=== PATIENT | female | born 1950 | race Caucasian/White ===

== ENCOUNTER 2017-01-25 16:57 | Inpatient (IN) | payer OTHER, MEDICARE ==
[~2017-01-25] VITALS: Ht 154.9 cm; Wt 115.7 kg
[2017-01-28] MEDS ORDERED: CELE100C PO (14:37)
[2017-01-28] MEDS ORDERED: MULTTAB25 PO (14:58)
[2017-01-28] MEDS ORDERED: ESCI20TA PO (14:58)
[2017-01-28] MEDS ORDERED: VITA2000 PO (14:58)
[2017-01-28] MEDS ORDERED: GLUC1CAP14 PO (14:58)
[2017-01-28] MEDS ORDERED: LEVO.075 PO (14:58)
[2017-01-28] MEDS ORDERED: VITA500T49 PO (14:58)
[2017-01-28] MEDS ORDERED: BUPR150T3 PO (14:58)
[2017-01-31] MEDS ORDERED: DEXAMETHASONE SOD PHOS 20 MG/5 ML VIAL IV PRN (06:15)
[2017-01-31] MEDS ORDERED: TRANEXAMIC ACID INJ 1,600 MG in SODIUM CHLORIDE 0.9% INJ 100 ML IV SCH (06:15)
[2017-01-31] MEDS ORDERED: ROPIVACAINE PERI-ARTICULAR INJECTION. PERIART SCH ×5 (06:15)
[2017-01-31] MEDS ORDERED: TRANEXAMIC PERI-ARTICULAR 3,000 MG/NS 100 ML P-ARTICULR SCH ×2 (06:15)
[2017-01-31] MEDS ORDERED: [UNRECOGNIZED DRUG - OTHER] P-ARTICULR SCH ×2 (06:15)
[2017-01-31] MEDS ORDERED: VANCOMYCIN 1000 MG/NS 250 ML (for <70 kg) IV SCH ×2 (06:15)
[2017-01-31] MEDS ORDERED: ceFAZolin 2 GM PREMIX 50 ML IV SCH (06:15)
[2017-01-31 06:20] VITALS: BP 146/81; PULSE 65; RESP 16; TEMP 98.2; O2SAT 94
[2017-01-31] MEDS ORDERED: METOPROLOL TARTRATE 25 MG TAB PO PRN (06:30)
[2017-01-31] MEDS: LACTATED RINGER'S 1000 ML IV SCH (06:30)
[2017-01-31] MEDS ORDERED: INSULIN HUMAN REGULAR 1,000 UNITS/10 ML VIAL SQ PRN (06:30)
[2017-01-31] MEDS ORDERED: SODIUM CHLORID 0.9% 500 ML IV SCH (06:30)
[2017-01-31] MEDS ORDERED: ACETAMINOPHEN 1000 MG/100 ML VIAL IV ONE (07:06)
[2017-01-31] MEDS ORDERED: SUGAMMADEX SODIUM 200 MG/2 ML VIAL IV PUSH ONE ×2 (07:06)
[2017-01-31] MEDS ORDERED: MORPHINE SULFATE 4 MG/ML INJ IV PUSH PRN (07:15)
[2017-01-31] MEDS ORDERED: NALOXONE HCL 0.4 MG/ML AMP IV PRN (07:15)
[2017-01-31] MEDS ORDERED: ONDANSETRON HCL 4 MG/2 ML VIAL IVP PRN (07:15)
[2017-01-31] MEDS ORDERED: ZOLPIDEM TARTRATE 5 MG TAB PO PRN (07:15)
[2017-01-31] MEDS ORDERED: diphenhydrAMINE HCL 50 MG/ML VIAL IV PRN (07:15)
[2017-01-31] MEDS ORDERED: MAGNESIUM HYDROXIDE SUSP 30 ML CUP PO PRN (07:15)
[2017-01-31] MEDS ORDERED: ALUMINUM/MAGNESIUM/SIMETH 30 ML CUP PO PRN (07:15)
[2017-01-31] MEDS ORDERED: ACETAMINOPHEN/HYDROcodone 325 MG/7.5 MG TAB PO PRN (07:15)
[2017-01-31] MEDS ORDERED: Post-op Orders (for Pharmacy) MISC XX ONE (07:15)
[2017-01-31] MEDS ORDERED: SODIUM CHLORIDE 0.9% FLUSH 5 ML FLUSH IVF PRN (07:15)
[2017-01-31] MEDS ORDERED: BISACODYL 10 MG SUPP PR PRN (07:15)
[2017-01-31] MEDS ORDERED: ENOX40P SQ (07:16)
[2017-01-31] MEDS ORDERED: GENTAMICIN SULFATE 80 MG/2 ML VIAL ONE (07:16)
[2017-01-31] MEDS ORDERED: ASPI81CH37 CHEW (07:16)
[2017-01-31] MEDS ORDERED: HYDR-3288 PO (07:17)
[2017-01-31] MEDS ORDERED: MIDAZOLAM HCL 5 MG/5 ML VIAL ONE (07:44)
[2017-01-31] MEDS ORDERED: FAMOTIDINE 20 MG/2 ML VIAL ONE (07:44)
--- NOTE | 2017-01-31 08:28 | PD.CONS ---
[facility] By Dr. Pradhan Reason for Consult Medical management patient to have right total knee arthroplasty today 01/31/2017 Primary Care Physician Danielle Lacey MD Diagnoses: History of Present Illness This is a pleasant 67-year-old female patient with past medical history which includes morbid obesity status post gastric bypass 2004, hypothyroidism, arthritis mostly bilateral knees and depression. Patient is scheduled to have right total knee arthroplasty today 01/31/[address] Pradhan. We've been consulted for since with medical management. Patient reports she has been feeling generally well denies shortness of breath chest pain nausea vomiting diarrhea constipation which congestion fevers or chills. Patient does report she has lost proximally 20 pounds over the last few months but she has been increasing her bike riding distance and watching her diet. Patient has had right knee pain not relieved by medical management physical therapy. Review of Systems Except as stated in HPI: all other systems reviewed are Neg Past Family Social History Allergies: Coded Allergies: No Known Allergies (Unverified , 01/31/17) Past Medical History morbid obesity status post gastric bypass 2004, hypothyroidism, arthritis mostly bilateral knees and depression. Past Surgical History Bilateral meniscus repair, carpal tunnel repair bilaterally, gastric bypass 2004 , fatty tumor removed from neck several years ago Reported Medications [place] (Hydrocodone-Acetaminophen) 7.5-325 mg Tab 1-2 Tab PO Q6H PRN Aspirin Low Dose (Aspirin) 81 Mg Chew 81 Mg CHEW BID Lovenox Inj (Enoxaparin Sodium) 40 Mg/0.4 Ml Syr 40 Mg SQ DAILY Synthroid (Levothyroxine Sodium) 75 Mcg Tab 75 Mcg PO DAILY Vitamin B12 (Cyanocobalamin) 500 Mcg Tab 3,000 Mcg PO DAILY Multi For Her 50+ (Multiple Vitamins W/ Minerals) 1 Tab Tab 2 Chew PO DAILY Vitamin D3 (Cholecalciferol) 2,000 Unit Cap 2,000 Units PO DAILY Glucosamine-Chondroitin 500-400 Mg Cap 2 Chew PO DAILY Escitalopram (Escitalopram Oxalate) 20 Mg Tab 20 Mg PO DAILY Bupropion HCl ER 24 HR (Bupropion HCl) 150 Mg Tab 150 Mg PO DAILY Celebrex (Celecoxib) 100 Mg Cap 100 Mg PO BID Active Ordered Medications Current Medications Medications (Trade) Dose Ordered Sig/Ubaldo Route Start Time Stop Time Status Last Admin (Betadine 7.5% Scrub) 1 applic ONCE TOP 01/31/17 06:15 3/9/17 06:14 Chlorhexidine Gluconate 1 applic 1 applic ONCE TOP 01/31/17 06:15 02/03/17 06:14 Tranexamic Acid 1600 mg/Sodium Chloride 116 ml @ 200 mls/hr ONCE IV 01/31/17 06:15 01/31/17 17:00 Bupivacaine Liposome 20 ml/ Sodium Chloride 60 ml @ 120 mls/hr ONCE P-ARTICULR 01/31/17 06:15 01/31/17 17:00 Ropivacaine 24.63 ml/Ketorolac Tromethamine 30 mg/Epinephrine HCl 0.5 mg/ Clonidine 80 mcg/ Sodium Chloride 100 ml @ 200 mls/hr ONCE PERIART 01/31/17 06:15 01/31/17 17:00 Tranexamic Acid 3000 mg/Sodium Chloride 130 ml @ 260 mls/hr ONCE P-ARTICULR 01/31/17 06:15 01/31/17 17:00 Lactated Ringer's 1,000 ml @ 30 mls/hr Q24H IV 01/31/17 06:30 01/31/17 06:30 (NS 500 ml Inj) 500 ml @ 30 mls/hr [id number] IV 01/31/17 06:30 02/01/17 06:29 (Wellbutrin Xl 24 Hr) 150 mg DAILY PO 01/31/17 09:00 UNV (Lexapro) 20 mg DAILY PO 01/31/17 09:00 UNV Levothyroxine Sodium 75 mcg 75 mcg DAILY PO 01/31/17 09:00 UNV (NS 1000 ml Inj) 1,000 ml @ 100 mls/hr Q10H IV 01/31/17 07:14 UNV (NS Flush) 2 ml UNSCH PRN IVF 01/31/17 07:15 UNV (NS Flush) 2 ml BID IVF 01/31/17 09:00 UNV (Post-op Orders (for Pharmacy)) STAT ONCE XX 01/31/17 07:15 01/31/17 07:16 UNV (Lovenox Inj) 40 mg Q24H SQ 01/31/17 07:15 UNV (Morphine Inj) 3 mg Q3H PRN IV PUSH 01/31/17 07:15 UNV ([place] 7.5-325 Mg) 1 tab Q4H PRN PO 01/31/17 07:15 UNV ([place] 7.5-325 Mg) 2 tab Q4H PRN PO 01/31/17 07:15 UNV (Theragran M Tab) 1 tab BID PO 02/01/17 21:00 04/02/17 20:59 UNV (Zofran Inj) 4 mg Q6H PRN IVP 01/31/17 07:15 UNV (Colace) 100 mg BID PO 02/01/17 21:00 UNV (Mag-Al Plus Susp Liq) 30 ml Q6H PRN PO 01/31/17 07:15 UNV (Ambien) 5 mg HS PRN PO 01/31/17 07:15 UNV (Dulcolax Supp) 10 mg DAILY PRN NM 01/31/17 07:15 UNV (Milk Of Magnesia Liq) 30 ml DAILY PRN PO 01/31/17 07:15 UNV (Narcan Inj) 0.4 mg UNSCH PRN IV 01/31/17 07:15 UNV (Benadryl Inj) 25 mg Q6H PRN IV 01/31/17 07:15 UNV Family History Patient reports bipolar runs in her family Brother secondary to brain aneurysm Social History Patient reports she drinks 1-2 beers a week Denies tobacco use now or in the past Denies illicit drug use Physical Exam Vital Signs Vital Signs Date Time Temp Pulse Resp B/P Pulse Ox O2 Delivery O2 Flow Rate FiO2 01/31/17 06:20 98.2 65 16 146/81 94 Physical Exam GENERAL: This is an obese, well-developed patient, in no apparent distress. SKIN: No rashes, ecchymoses or lesions. Cool and dry. Bilateral forearm tattoo' s HEAD: Atraumatic. Normocephalic. No temporal or scalp tenderness. EYES: Extraocular motions intact. No scleral icterus. No injection or drainage. CARDIOVASCULAR: Regular rate and rhythm without murmurs, gallops, or rubs. RESPIRATORY: Clear to auscultation. Breath sounds equal bilaterally. No wheezes , rales, or rhonchi. GASTROINTESTINAL: Abdomen soft, non-tender, nondistended. No hepato-splenomegaly , or palpable masses. No guarding. MUSCULOSKELETAL: 5 out of 5 strength in all 4 extremities No calf tenderness. Negative Homans sign bilaterally. NEUROLOGICAL: Awake and alert. No focal deficits. Motor and sensory grossly within normal limits. Five out of 5 muscle strength in all muscle groups. Normal speech. Laboratory Laboratory Tests Test 01/31/17 06:25 Blood Type O POSITIVE Antibody Screen NEGATIVE Blood Bank Comment Assessment and Plan Assessment and Plan This is a pleasant 67-year-old female patient with past medical history which includes morbid obesity status post gastric bypass 2004, hypothyroidism, arthritis mostly bilateral knees and depression. Patient is scheduled to have right total knee arthroplasty today 01/31/[address] Pradhan. We've been consulted for since with medical management. Osteoarthritis right knee Plan right total knee arthroplasty today 01/31/[address] Pradhan Postoperative pain management per surgery. CBC and BMP in a.m. Hypothyroidism continue patient's Synthroid 75mcg per day Depression continue patient's home Bupropion and Escitalopram DVT prophylaxis per surgery Thank you for the consultation and for allowing us to participate in the care of this patient Care discussed with patient as well as Dr. Nguyen Agree with management Code Status Full Code. Jada Muñoz Jan 31, 2017 08:28 Sp Bennett MD Feb 01, 2017 13:26
[2017-01-31] MEDS ORDERED: buPROPion HCL 150 MG EXTENDED RELEASE TAB PO SCH (09:00)
[2017-01-31] MEDS: LEVOTHYROXINE SODIUM 75 MCG TAB PO SCH (09:00)
[2017-01-31] MEDS ORDERED: BUPIVACAINE LIPOSOME PF 1.3% 20 ML VIAL ONE (10:36)
[2017-01-31] MEDS ORDERED: fentaNYL CITRATE 250 MCG/5 ML AMP ONE (10:57)
[2017-01-31] MEDS ORDERED: *morphine SULFATE 8 MG/ML PERIprocedure ONLY ONE ×2 (11:02→11:16)
[2017-01-31] MEDS: SODIUM CHLOR 0.9% 1000 ML INJ 1,000 ML IV SCH ×2 (11:15→20:00)
[2017-01-31] MEDS ORDERED: ONDANSETRON HCL 4 MG/2 ML VIAL IV PUSH ONE (12:00)
[2017-01-31] MEDS ORDERED: LACTATED RINGER'S 1000 ML INJ 1,000 ML IV ONE (12:00)
[2017-01-31] MEDS ORDERED: PROPOFOL 200 MG/20 ML AMP IV ONE ×2 (12:00)
--- NOTE | 2017-01-31 12:00 | RADRPT ---
EXAM DATE/TIME: 01/31/2017 11:15 [facility] COMPARISON: No previous studies available for comparison. INDICATIONS : Post right knee surgery. MEDICAL HISTORY : None. SURGICAL HISTORY : None. ENCOUNTER: Initial ACUITY: 1 day PAIN SCORE: Non-responsive. LOCATION: Right knee. FINDINGS: AP and lateral views of the right knee demonstrate changes consistent with recent total knee arthropl asty with metallic hardware in place in the distal femur and proximal tibia. There is a radiolucent p atellar component. There is soft tissue gas present, as expected CONCLUSION: Expected findings are identified following recent total knee arthroplasty. Eliseo Sheldon MD on January 31, 2017 at 11:57 Board Certified Radiologist. This report was verified electronically.
--- NOTE | 2017-01-31 12:19 | MP ---
cc: MICHELA CLARK DATE OF SURGERY: 01/31/2017 PREOPERATIVE DIAGNOSIS Right knee osteoarthritis. POSTOPERATIVE DIAGNOSES Right knee osteoarthritis. PROCEDURE Right total knee arthroplasty. SURGEON Dr. Michela Clark HARNESS PLACER Michela Brantley PA-C ANESTHESIA General. ESTIMATED BLOOD LOSS 100 cc. COMPLICATIONS None. IMPLANTS USED DePuy Attune size 6 posterior stabilized femoral component, size 5 rotating platform tibia baseplate, size 5 tibial insert, size 35 mm patella. JUSTIFICATION This patient is a 67-year-old female with a history of a severe end-stage osteoarthritis involving the right knee. She has severe disabling pain with standing and walking ambulation, weightbearing activities, even severe pain at rest. She has failed greater than 3 months of nonoperative conservative treatment to include medication, therapy, injections, ambulatory assisted aids, home exercise program, weight loss attempts and activity modification. X-rays of the right knee reveal severe end-stage osteoarthritis with [id number] joint space narrowing, subchondral sclerosis, subchondral cysts, osteophyte formation and varus deformity. The patient was counseled as to the risks, benefits and alternatives to a total knee arthroplasty. The risks of such include but are not limited to anesthesia, bleeding, infection, damage to nerves and blood vessels, pain and stiffness, failure of the components, blood clots, pulmonary embolism, and even . The patient's pain is severe. She favored the benefits over the risks and did wish to proceed with surgery. PROCEDURE IN DETAIL Written consent was obtained. The patient was identified by name, taken to the operating room and placed supine on the operating table. General anesthesia was administered as well as two grams of IV Ancef and one gram of IV vancomycin. A well-padded tourniquet was placed on the right thigh. The right lower extremity was prepped and draped using isopropyl alcohol, Hibiclens solution and ChloraPrep solution. After an appropriate timeout was performed an Esmarch bandage was used to exsanguinate the right lower extremity. The tourniquet was inflated to 300 mmHg. A longitudinal incision was made over the anterior aspect of the right knee. A medial parapatellar arthrotomy was performed. The patella was everted. A patellar resection guide was used to resect 8 mm of patella. A size 35 mm guide was placed. Three drill holes were placed and the 35 mm trial fit well. Attention was turned to the femur where an intramedullary guide kristie was placed. This was set to remove 10 mm of distal femur 5 degrees off the anatomic valgus axis alignment. An oscillating saw was used to perform the distal femoral cut. At this point I deflated the tourniquet because she appeared to be bleeding through and the tourniquet did not appear to be of any significant benefit. Attention was turned to the tibia where an extramedullary tibial guide was set to remove 5 mm off the lowest portion of the medial tibial plateau. A tibia guide was pinned in place and a tibia cut was performed. A 5 mm spacer block showed full extension. Attention was turned back to the femur where the AP sizing block measured size 6. The anterior reference 3 degree external rotation guide was used to pin a size [address] The anterior, grants officer and chamfer cuts were performed. A size 6 PCL box guide was pinned in place. The PCL was box cut with an oscillating saw. The medial and lateral meniscus remnants were removed as well as bone and soft tissue removed from the posterior portion of the knee. A size 5 tibia baseplate was pinned in place. The tibia was drilled and punched. Trial components were evaluated and the [address]. With the 5 mm tibial insert the leg could achieve full extension to 0 degrees and flexion to 140. There was no evidence of tibial lift-off, varus-valgus balance appeared appropriate, and the patella was noted to track centrally. The knee was thoroughly irrigated sterile saline pulse lavage antibiotic impregnated solution. The arthrotomy incision was closed with #1 Vicryl suture, the subcutaneous layer with 2-0 Vicryl suture and the skin was closed with Dermabond. Sterile dressings were applied. The patient tolerated the procedure well with no intraoperative complication noted. Michela Brantley, physician registered sales assistant certified, was present during the entire procedure to include patient positioning and the procedure itself. The medical necessity of a physician registered sales assistant was indicated in this case due to the complexity of the procedure. He assisted with appropriate manipulation of the leg and also traction of muscle, tendon, bone and neurovascular structures. He assisted with both preparation of bone cuts and also implantation of the prosthetic replacement. MD MAXIMILIANO Slater/GERRY /10:30 AM /12:04 PM
[2017-01-31] MEDS: ceFAZolin 1,000 MG/NS 100 ML IV SCH ×4 (14:00→20:00)
[2017-01-31] MEDS: ESCITALOPRAM OXALATE 20 MG TAB PO SCH (18:55)
[2017-01-31] MEDS: buPROPion HCL 150 MG SUSTAINED RELEASE TAB PO SCH (18:59)
[2017-01-31 20:30] VITALS: BP 113/59; PULSE 65; RESP 17; TEMP 97.9; O2SAT 95
[2017-01-31] MEDS: SODIUM CHLORIDE 0.9% FLUSH 5 ML FLUSH IVF SCH (21:00)
[2017-02-01] VITALS (8 sets, daily range): BP systolic 103–154; BP diastolic 56–67; PULSE 59–83; RESP 16–18; TEMP 97.6–99.8; O2SAT 93–98
[2017-02-01] MEDS: ceFAZolin 1,000 MG/NS 100 ML IV SCH ×2 (01:50)
[2017-02-01] MEDS: SODIUM CHLOR 0.9% 1000 ML INJ 1,000 ML IV SCH ×3 (01:51→20:31)
[2017-02-01] MEDS: LACTATED RINGER'S 1000 ML IV SCH (04:09)
[2017-02-01] MEDS: ACETAMINOPHEN/HYDROcodone 325 MG/7.5 MG TAB PO PRN ×4 (05:02→20:30)
[2017-02-01] MEDS: LEVOTHYROXINE SODIUM 75 MCG TAB PO SCH (05:02)
[2017-02-01] MEDS: CHLORHEXIDINE GLUCONATE 4% SOLN 120 ML BTL TOP SCH (06:03)
[2017-02-01] MEDS: POVIDONE IODINE 7.5% SCRUB 118 ML BOTTLE TOP SCH (06:03)
--- NOTE | 2017-02-01 08:27 | PD.ORT.PN ---
Subjective Post Op Day #: 1 Subjective Remarks pain controlled. Objective Vitals Vital Signs Date Time Temp Pulse Resp B/P Pulse Ox O2 Delivery O2 Flow Rate FiO2 02/01/17 04:00 Room Air 02/01/17 04:00 98.3 70 17 134/65 96 02/01/17 00:00 97.6 80 18 121/56 95 02/01/17 00:00 Room Air 01/31/17 20:30 97.9 65 17 113/59 95 01/31/17 20:00 Room Air 01/31/17 20:00 97.6 65 16 120/62 95 Room Air 01/31/17 19:00 66 16 126/63 95 Room Air 01/31/17 18:00 68 16 135/67 94 Room Air 01/31/17 17:00 66 16 136/65 94 Room Air 01/31/17 16:00 67 16 137/68 93 Room Air 01/31/17 15:00 69 16 139/70 99 Nasal Cannula 2 01/31/17 14:05 97.8 68 17 146/72 97 Nasal Cannula 2 01/31/17 14:00 75 17 141/68 98 Nasal Cannula 2 01/31/17 13:00 76 17 166/73 98 Nasal Cannula 2 01/31/17 12:15 73 17 171/76 98 Nasal Cannula 3 01/31/17 12:00 69 17 166/73 98 Nasal Cannula 3 01/31/17 11:45 86 17 152/58 96 Nasal Cannula 3 01/31/17 11:30 71 15 150/72 97 Nasal Cannula 3 01/31/17 11:15 75 15 167/69 97 Nasal Cannula 3 01/31/17 11:00 81 15 161/74 97 Nasal Cannula 3 01/31/17 10:52 97.8 83 15 187/77 95 Nasal Cannula 3 I/O 01/31/17 01/31/17 01/31/17 02/01/17 02/01/17 02/01/17 07:00 15:00 23:00 07:00 15:00 23:00 Intake Total 1550 ml 2267 ml 1069 ml Output Total 610 ml 650 ml 350 ml Balance 940 ml 1617 ml 719 ml Intake Oral 680 ml 480 ml IV Total 450 ml 1587 ml 589 ml Other 1100 ml Output Urine Total 310 ml 650 ml 350 ml Estimated Blood Loss 300 ml Objective Remarks in bed, nad dressing c/d/i neg homabeckie nvi Assessment & Plan Ortho Post Op Day #: 1 Problem List: Assessment and Plan s/p R TKA wbat daily dressing changes lovenox rx in chart d/c planning home with [facility] and pt f/up dr. chapman 2 weeks Howie Brantley Feb 01, 2017 08:27
--- NOTE | 2017-02-01 08:29 | HHI.DCPOC ---
Discharge Care Plan Diagnosis: (1) Primary localized osteoarthrosis, lower leg Your Health Problems Are: Difficulty with ADL Goals to Promote Your Health * To prevent worsening of your condition and complications * To maintain your health at the optimal level Directions to Meet Your Goals Take your medications as prescribed Follow your dietary instruction Follow activity as directed Keep your appointments as scheduled Take your immunizations and boosters as scheduled If your symptoms worsen call your PCP, if no PCP go to Urgent Care Center or Emergency Room Smoking is Dangerous to Your Health. Avoid second hand smoke Call the 24-hour hour crisis hotline for domestic abuse at Howie Brantley Feb 01, 2017 08:29
[2017-02-01] MEDS ORDERED: MISC-163 (08:30)
--- NOTE | 2017-02-01 08:30 | HHI.FF ---
Face to Face Verification Diagnosis: (1) Primary localized osteoarthrosis, lower leg Physical Therapy Gait training, Safety evaluation, Transfer training, bed to chair Knee: Total knee, Protocol: Right, Full weight bearing Right LE Weight Bearing: WB as tolerated Nursing RN: 3 days/week x 2 weeks Nursing: Aide teaching, Dressing changes Dressing Changes: Daily dressing change I have seen patient Curtis Ireland on 02/01/17. My clinical findings support the need for the requested home health care services because: Limited ability to care for self High risk of falls I certify that my clinical findings support that this patient is homebound because: Post-op weakness Unsteady gait/balance Howie Brantley Feb 01, 2017 08:30
[2017-02-01 08:43] LABS: HEMATOCRIT 30.6 % (35.0-46.0); MEAN CELL VOLUME 95.6 FL (80.0-100.0); MEAN CORPUSCULAR HEMOGLOBIN 32.2 PG (27.0-34.0); MEAN CORPUSCULAR HGB CONC 33.7 % (32.0-36.0); PLATELET COUNT 154 TH/MM3 (150-450); RED CELL DISTRIBUTION WIDTH 14.2 % (11.6-17.2); REVIEW FLAG FINAL; WHITE BLOOD COUNT 7.4 TH/MM3 (4.0-11.0)
[2017-02-01] MEDS: buPROPion HCL 150 MG SUSTAINED RELEASE TAB PO SCH (08:52)
[2017-02-01] MEDS: SODIUM CHLORIDE 0.9% FLUSH 5 ML FLUSH IVF SCH ×2 (08:53→20:30)
[2017-02-01] MEDS: ESCITALOPRAM OXALATE 20 MG TAB PO SCH (08:53)
[2017-02-01 09:06] LABS: BICARBONATE 29.9 MEQ/L (21.0-32.0)
[2017-02-01] MEDS: MAGNESIUM HYDROXIDE SUSP 30 ML CUP PO SCH ×2 (09:15→20:30)
[2017-02-01] MEDS: ENOXAPARIN SODIUM 40 MG/0.4 ML SYRINGE SQ SCH (09:19)
--- NOTE | 2017-02-01 13:33 | HHI.PR ---
Subjective Remarks This is a pleasant 67-year-old female who has Morbid Obesity, Gastric bypass surgery 2005 Hypothyroidism, OA, Depression, status post Right total knee arthroplasty. today stable no new issues probable will be discharged later by specialist. discussed with nurse Miss Schulz no complaint. Objective Vital Signs Date Time Temp Pulse Resp B/P Pulse Ox O2 Delivery O2 Flow Rate FiO2 02/01/17 12:00 98.5 83 18 120/67 98 02/01/17 09:00 96 Room Air 02/01/17 08:58 96 21 02/01/17 08:00 99.0 70 18 154/63 93 02/01/17 04:00 Room Air 02/01/17 04:00 98.3 70 17 134/65 96 02/01/17 00:00 97.6 80 18 121/56 95 02/01/17 00:00 Room Air 01/31/17 20:30 97.9 65 17 113/59 95 01/31/17 20:00 Room Air 01/31/17 20:00 97.6 65 16 120/62 95 Room Air 01/31/17 19:00 66 16 126/63 95 Room Air 01/31/17 18:00 68 16 135/67 94 Room Air 01/31/17 17:00 66 16 136/65 94 Room Air 01/31/17 16:00 67 16 137/68 93 Room Air 01/31/17 15:00 69 16 139/70 99 Nasal Cannula 2 01/31/17 14:05 97.8 68 17 146/72 97 Nasal Cannula 2 01/31/17 14:00 75 17 141/68 98 Nasal Cannula 2 I/O 01/31/17 01/31/17 01/31/17 02/01/17 02/01/17 02/01/17 07:00 15:00 23:00 07:00 15:00 23:00 Intake Total 1550 ml 2267 ml 1069 ml Output Total 610 ml 650 ml 350 ml Balance 940 ml 1617 ml 719 ml Intake Oral 680 ml 480 ml IV Total 450 ml 1587 ml 589 ml Other 1100 ml Output Urine Total 310 ml 650 ml 350 ml Estimated Blood Loss 300 ml Result Diagram: 02/01/17 0755 02/01/17 0755 Imaging Last Impressions Knee X-Ray 01/31/17713 Signed Impressions: Service Date/Time: Tuesday, January 31, 2017 11:15 - CONCLUSION: Expected findings are identified following recent total knee arthroplasty. Eliseo Sheldon MD Procedures Right total knee arthroplasty. Other Results Laboratory Tests Test 01/31/17 02/01/17 06:25 07:55 Blood Type O POSITIVE Antibody Screen NEGATIVE Blood Bank Comment White Blood Count 7.4 TH/MM3 Red Blood Count 3.20 MIL/MM3 Hemoglobin 10.3 GM/DL Hematocrit 30.6 % Mean Corpuscular Volume 95.6 FL Mean Corpuscular Hemoglobin 32.2 PG Mean Corpuscular Hemoglobin 33.7 % Concent Red Cell Distribution Width 14.2 % Platelet Count 154 TH/MM3 Mean Platelet Volume 8.6 FL Sodium Level 144 MEQ/L Potassium Level 4.0 MEQ/L Chloride Level 107 MEQ/L Carbon Dioxide Level 29.9 MEQ/L Anion Gap 7 MEQ/L Blood Urea Nitrogen 16 MG/DL Creatinine 0.83 MG/DL Estimat Glomerular Filtration 68 ML/MIN Rate Random Glucose 93 MG/DL Calcium Level 8.0 MG/DL Objective Remarks GENERAL: This is an obese, well-developed patient, in no apparent distress. SKIN: No rashes, ecchymoses or lesions. Cool and dry. Bilateral forearm tattoo' s HEAD: Atraumatic. Normocephalic. No temporal or scalp tenderness. EYES: Extraocular motions intact. No scleral icterus. No injection or drainage. CARDIOVASCULAR: Regular rate and rhythm without murmurs, gallops, or rubs. RESPIRATORY: Clear to auscultation. Breath sounds equal bilaterally. No wheezes , rales, or rhonchi. GASTROINTESTINAL: Abdomen soft, non-tender, nondistended. No hepato-splenomegaly , or palpable masses. No guarding. MUSCULOSKELETAL: Right knee dressed. NEUROLOGICAL: Awake and alert. No focal deficits. Motor and sensory grossly within normal limits. Medications and IVs Current Medications Medications (Trade) Dose Ordered Sig/Ubaldo Route Start Time Stop Time Status Last Admin (Betadine 7.5% Scrub) 1 applic ONCE TOP 01/31/17 06:15 02/03/17 06:14 Chlorhexidine Gluconate 1 applic 1 applic ONCE TOP 01/31/17 06:15 02/03/17 06:14 (Lr 1000 ml Inj) 1,000 ml @ 30 mls/hr Q24H IV 01/31/17 06:30 01/31/17 06:30 (Lexapro) 20 mg DAILY PO 01/31/17 09:00 02/01/17 08:53 Levothyroxine Sodium 75 mcg 75 mcg DAILY@06 PO 01/31/17 09:00 02/01/17 05:02 (NS 1000 ml Inj) 1,000 ml @ 100 mls/hr Q10H IV 01/31/17 07:14 02/01/17 01:51 (NS Flush) 2 ml UNSCH PRN IVF 01/31/17 07:15 (NS Flush) 2 ml BID IVF 01/31/17 09:00 (Lovenox Inj) 40 mg Q24H SQ 02/01/17 10:00 02/01/17 09:19 (Morphine Inj) 3 mg Q3H PRN IV PUSH 01/31/17 07:15 ([place] 7.5-325 Mg) 1 tab Q4H PRN PO 01/31/17 07:15 ([place] 7.5-325 Mg) 2 tab Q4H PRN PO 01/31/17 07:15 02/01/17 10:37 (Theragran M Tab) 1 tab BID PO 02/01/17 21:00 04/02/17 20:59 (Zofran Inj) 4 mg Q6H PRN IVP 01/31/17 07:15 (Colace) 100 mg BID PO 02/01/17 21:00 (Mag-Al Plus Susp Liq) 30 ml Q6H PRN PO 01/31/17 07:15 (Ambien) 5 mg HS PRN PO 01/31/17 07:15 (Dulcolax Supp) 10 mg DAILY PRN [place] 01/31/17 07:15 (Narcan Inj) 0.4 mg UNSCH PRN IV 01/31/17 07:15 (Benadryl Inj) 25 mg Q6H PRN IV 01/31/17 07:15 (Wellbutrin Sr) 150 mg DAILY PO 01/31/17 19:00 02/01/17 08:52 (Milk Of Magnesia Liq) 30 ml BID PO 02/01/17 09:15 (Senokot) 17.2 mg HS PO 02/01/17 21:00 A/P Assessment and Plan 1. OA of the knees status post Right total knee arthroplasty stable may be discharged by specialist later today 2. Hypothyroidism continue hormonal replacement 3. Depression stable 4. Morbid obesity strongly recommended weight loss, diet and exercise. DVT prophylaxis per surgery Patient stable okay for discharge later today. Discharge Planning ready for discharge from Medicine standpoint. Sp Bennett MD Feb 01, 2017 13:33
[2017-02-01] MEDS: DOCUSATE SODIUM 100 MG CAP PO SCH (20:30)
[2017-02-01] MEDS: MULTIVITAMINS/MINERALS THERAPEUTIC TAB PO SCH (20:30)
[2017-02-01] MEDS ORDERED: SENNOSIDES 8.6 MG TAB PO SCH (21:00)
[2017-02-02] VITALS: BP 138/76; PULSE 78; RESP 16; TEMP 98.4; O2SAT 95
[2017-02-02] MEDS: ACETAMINOPHEN/HYDROcodone 325 MG/7.5 MG TAB PO PRN ×4 (01:06→15:28)
--- NOTE | 2017-02-02 01:18 | RADRPT ---
EXAM DATE/TIME: 02/01/2017 23:35 [facility] COMPARISON: No previous studies available for comparison. INDICATIONS : Right leg pain. MEDICAL HISTORY : Arthritis. Thyroid disease. Anticoagulant therapy, Lovenox. SURGICAL HISTORY : Gastric bypass. Bilateral meniscus surgery. Bilateral carpel tunnel release. ENCOUNTER: Initial ACUITY: 1 day PAIN SCORE: 5/10 LOCATION: Right leg. TECHNIQUE: Venous ultrasound of the leg was performed from the inguinal ligament to the proximal calf. Real-owen e, color Doppler and spectral tracing, compression and augmentation techniques were used. FINDINGS: There is normal compressibility of the deep venous system from the inguinal region to the proximal ca lf. No echogenic clot is seen in the lumen of the common femoral, femoral, popliteal, and posterior tibial veins. There is a normal response of the venous system to proximal and distal augmentation an d respiration. CONCLUSION: No DVT. Derrek Erazo MD on February 02, 2017 at 1:16 Board Certified Radiologist. This report was verified electronically.
[2017-02-02] MEDS: LACTATED RINGER'S 1000 ML IV SCH (01:21)
[2017-02-02] MEDS: POVIDONE IODINE 7.5% SCRUB 118 ML BOTTLE TOP SCH (01:21)
[2017-02-02] MEDS: CHLORHEXIDINE GLUCONATE 4% SOLN 120 ML BTL TOP SCH (01:21)
[2017-02-02] MEDS: LEVOTHYROXINE SODIUM 75 MCG TAB PO SCH (05:51)
[2017-02-02 06:49] LABS: HEMATOCRIT 29.3 % (35.0-46.0); MEAN CELL VOLUME 94.6 FL (80.0-100.0); MEAN CORPUSCULAR HEMOGLOBIN 32.4 PG (27.0-34.0); MEAN CORPUSCULAR HGB CONC 34.2 % (32.0-36.0); PLATELET COUNT 144 TH/MM3 (150-450); RED CELL DISTRIBUTION WIDTH 14.5 % (11.6-17.2); REVIEW FLAG FINAL; WHITE BLOOD COUNT 6.1 TH/MM3 (4.0-11.0)
[2017-02-02 07:10] LABS: BICARBONATE 27.6 MEQ/L (21.0-32.0); POTASSIUM 4.1 MEQ/L (3.5-5.1)
--- NOTE | 2017-02-02 08:06 | PD.ORT.PN ---
Subjective Post Op Day #: 2 Subjective Remarks pain controlled. feeling much better. Objective Vitals Vital Signs Date Time Temp Pulse Resp B/P Pulse Ox O2 Delivery O2 Flow Rate FiO2 02/02/17 00:00 98.4 78 16 138/76 95 02/01/17 20:25 96 21 02/01/17 20:00 99.8 81 16 145/65 93 02/01/17 16:00 99.0 75 18 138/56 96 02/01/17 12:00 98.5 83 18 120/67 98 02/01/17 09:00 96 Room Air 02/01/17 08:58 96 21 I/O 02/01/17 02/01/17 02/01/17 02/02/17 02/02/17 02/02/17 07:00 15:00 23:00 07:00 15:00 23:00 Intake Total 1069 ml 720 ml 240 ml Output Total 350 ml Balance 719 ml 720 ml 240 ml Intake Oral 480 ml 720 ml 240 ml IV Total 589 ml Output Urine Total 350 ml # Voids 5 2 # Bowel Movements 0 0 Result Diagram: 02/02/1762702/02/1728 Objective Remarks in bed, nad incision no erythema, no drainage neg homans nvi Assessment & Plan Ortho Post Op Day #: 2 Problem List: Assessment and Plan s/p R TKA wbat daily dressing changes lovenox rx in chart d/c planning home with [facility] and pt - cleared for d/c today f/up dr. chapman 2 weeks Howie Brantley Feb 02, 2017 08:06
[2017-02-02 08:08] VITALS: BP 155/69; PULSE 73; RESP 16; TEMP 98.6; O2SAT 94
[2017-02-02] MEDS: MAGNESIUM HYDROXIDE SUSP 30 ML CUP PO SCH (09:00)
[2017-02-02] MEDS: DOCUSATE SODIUM 100 MG CAP PO SCH (09:00)
[2017-02-02] MEDS: SODIUM CHLOR 0.9% 1000 ML INJ 1,000 ML IV SCH (09:14)
[2017-02-02] MEDS: buPROPion HCL 150 MG SUSTAINED RELEASE TAB PO SCH (09:19)
[2017-02-02] MEDS: ESCITALOPRAM OXALATE 20 MG TAB PO SCH (09:19)
[2017-02-02] MEDS: SODIUM CHLORIDE 0.9% FLUSH 5 ML FLUSH IVF SCH (09:20)
[2017-02-02] MEDS: MULTIVITAMINS/MINERALS THERAPEUTIC TAB PO SCH (09:21)
[2017-02-02] MEDS: ENOXAPARIN SODIUM 40 MG/0.4 ML SYRINGE SQ SCH (09:21)
[2017-02-02 12:22] VITALS: BP 139/68; PULSE 70; RESP 16; TEMP 97.9; O2SAT 95
--- NOTE | 2017-02-02 16:16 | HHI.PR ---
Subjective Remarks This is a pleasant 67-year-old female who has Morbid Obesity, Gastric bypass surgery 2005 Hypothyroidism, OA, Depression, status post Right total knee arthroplasty. today stable no Nausea, vomit or diarrhea, stable okay to discharge Home Objective Vital Signs Date Time Temp Pulse Resp B/P Pulse Ox O2 Delivery O2 Flow Rate FiO2 02/02/17 08:08 98.6 73 16 155/69 94 02/02/17 00:00 98.4 78 16 138/76 95 02/01/17 20:25 96 21 02/01/17 20:00 99.8 81 16 145/65 93 I/O 02/01/17 02/01/17 02/01/17 02/02/17 02/02/17 02/02/17 07:00 15:00 23:00 07:00 15:00 23:00 Intake Total 1069 ml 720 ml 240 ml Output Total 350 ml Balance 719 ml 720 ml 240 ml Intake Oral 480 ml 720 ml 240 ml IV Total 589 ml Output Urine Total 350 ml # Voids 5 2 # Bowel Movements 0 0 1 Result Diagram: 02/02/17 0628 02/02/17 0628 Imaging Last Impressions Lower Extremity Ultrasound 02/01/17 0000 Signed Impressions: Service Date/Time: Wednesday, February 01, 2017 23:35 - CONCLUSION: No DVT. Derrek Erazo MD Knee X-Ray 01/31/17 0714 Signed Impressions: Service Date/Time: Tuesday, January 31, 2017 11:15 - CONCLUSION: Expected findings are identified following recent total knee arthroplasty. Eliseo Sheldon MD Procedures Right total knee arthroplasty. Other Results Laboratory Tests Test 01/31/17 02/02/17 06:25 06:28 Blood Type O POSITIVE Antibody Screen NEGATIVE Blood Bank Comment White Blood Count 6.1 TH/MM3 Red Blood Count 3.10 MIL/MM3 Hemoglobin 10.0 GM/DL Hematocrit 29.3 % Mean Corpuscular Volume 94.6 FL Mean Corpuscular Hemoglobin 32.4 PG Mean Corpuscular Hemoglobin 34.2 % Concent Red Cell Distribution Width 14.5 % Platelet Count 144 TH/MM3 Mean Platelet Volume 8.6 FL Sodium Level 141 MEQ/L Potassium Level 4.1 MEQ/L Chloride Level 105 MEQ/L Carbon Dioxide Level 27.6 MEQ/L Anion Gap 8 MEQ/L Blood Urea Nitrogen 14 MG/DL Creatinine 0.77 MG/DL Estimat Glomerular Filtration 75 ML/MIN Rate Random Glucose 137 MG/DL Calcium Level 8.3 MG/DL Objective Remarks GENERAL: This is an obese, well-developed patient, in no apparent distress. SKIN: No rashes, ecchymoses or lesions. Cool and dry. Bilateral forearm tattoo' s HEAD: Atraumatic. Normocephalic. No temporal or scalp tenderness. EYES: Extraocular motions intact. No scleral icterus. No injection or drainage. CARDIOVASCULAR: Regular rate and rhythm without murmurs, gallops, or rubs. RESPIRATORY: Clear to auscultation. Breath sounds equal bilaterally. No wheezes , rales, or rhonchi. GASTROINTESTINAL: Abdomen soft, non-tender, nondistended. No hepato-splenomegaly , or palpable masses. No guarding. MUSCULOSKELETAL: Right knee dressed. NEUROLOGICAL: Awake and alert. No focal deficits. Motor and sensory grossly within normal limits. Medications and IVs Current Medications Medications (Trade) Dose Ordered Sig/Ubaldo Route Start Time Stop Time Status Last Admin (Betadine 7.5% Scrub) 1 applic ONCE TOP 01/31/17 06:15 02/03/17 06:14 Chlorhexidine Gluconate 1 applic 1 applic ONCE TOP 01/31/17 06:15 02/03/17 06:14 (Lr 1000 ml Inj) 1,000 ml @ 30 mls/hr Q24H IV 01/31/17 06:30 01/31/17 06:30 (Lexapro) 20 mg DAILY PO 01/31/17 09:00 02/02/17 09:19 Levothyroxine Sodium 75 mcg 75 mcg DAILY@06 PO 01/31/17 09:00 02/02/17 05:51 (NS 1000 ml Inj) 1,000 ml @ 100 mls/hr Q10H IV 01/31/17 07:14 02/01/17 01:51 (NS Flush) 2 ml UNSCH PRN IVF 01/31/17 07:15 (NS Flush) 2 ml BID IVF 01/31/17 09:00 02/02/17 09:20 (Lovenox Inj) 40 mg Q24H SQ 02/01/17 10:00 02/02/17 09:21 (Morphine Inj) 3 mg Q3H PRN IV PUSH 01/31/17 07:15 (Eagle 7.5-325 Mg) 1 tab Q4H PRN PO 01/31/17 07:15 (Eagle 7.5-325 Mg) 2 tab Q4H PRN PO 01/31/17 07:15 02/02/17 15:28 (Theragran M Tab) 1 tab BID PO 02/01/17 21:00 04/02/17 20:59 02/02/17 09:21 (Zofran Inj) 4 mg Q6H PRN IVP 01/31/17 07:15 (Colace) 100 mg BID PO 02/01/17 21:00 (Mag-Al Plus Susp Liq) 30 ml Q6H PRN PO 01/31/17 07:15 (Ambien) 5 mg HS PRN PO 01/31/17 07:15 (Dulcolax Supp) 10 mg DAILY PRN VA 01/31/17 07:15 (Narcan Inj) 0.4 mg UNSCH PRN IV 01/31/17 07:15 (Benadryl Inj) 25 mg Q6H PRN IV 01/31/17 07:15 (Wellbutrin Sr) 150 mg DAILY PO 01/31/17 19:00 02/02/17 09:19 (Milk Of Magnesia Liq) 30 ml BID PO 02/01/17 09:15 (Senokot) 17.2 mg HS PO 02/01/17 21:00 A/P Assessment and Plan 1. OA of the knees status post Right total knee arthroplasty POD #2 2. Hypothyroidism continue hormonal replacement 3. Depression stable 4. Morbid obesity strongly recommended weight loss, diet and exercise. DVT prophylaxis per surgery Patient stable okay for discharge later today. Discharge Planning ready for discharge from Medicine standpoint. Sp Bennett MD Feb 02, 2017 16:16
[2017-02-02 16:50] VITALS: BP 129/74; PULSE 78; RESP 16; TEMP 98.5; O2SAT 96
--- NOTE | 2017-02-09 10:48 | MD ---
cc: MICHELA CLARK ADMISSION DATE: 01/31/2017 DISCHARGE DATE: 02/02/2017 ADMITTING DIAGNOSIS Severe degenerative osteoarthritis, right knee. DISCHARGE DIAGNOSIS Severe degenerative osteoarthritis, right knee. HISTORY OF PRESENT ILLNESS Mrs. Ireland is a 67-year-old female who presented to the [facility] for evaluation by Dr. Michela Clark regarding her progressive and severe right knee pain. The patient states the pain has been progressive for the last several years and currently is inhibiting her activities of daily living. She states she has a constant severe aching sensation and is aggravated by weightbearing activities. She has no alleviating factors at this point in time, although in the past she has tried medications, weight loss attempts, gastric bypass surgery, assistive devices, physical therapy, home exercise program, and multiple corticosteroid injections without long-lasting relief of her symptoms. The patient does have x-ray evidence of severe degenerative osteoarthritis of the right knee. While in the office the patient was counseled on her diagnosis and treatment options. Risks, benefits and indications were all discussed in great detail. The patient did elect to proceed with surgical intervention to include a right total knee arthroplasty. Date of surgery 01/31/2017: Right total knee arthroplasty. POST-OP After surgery the patient was admitted to [facility] where she received appropriate medical management and pain control with DVT prophylaxis as well as physical therapy. DISCHARGE Once being discharged from the hospital the patient is cleared to go home. She is in stable condition. The patient will receive home health care and home physical therapy. She will also receive daily dressing changes and has been instructed on appropriate wound care management. The patient has been provided prescriptions for pain control as well as DVT prophylaxis medication. She has also been provided a follow-up appointment to see Dr. Michela Clark in the office in approximately 2 weeks from her date of surgery. The patient has asked appropriate questions which have been answered. The patient is cleared for discharge. Dictated by: Michela Brantley PA-C MD MAXIMILIANO Slater/GERRY /8:10 AM /9:34 AM
[2017-04-22] MEDS ORDERED: TRAM50TA PO (09:45)
[2017-04-22] MEDS ORDERED: TYLE325T PO (09:45)
== END 2017-02-02 19:18 | disposition home health service (06) | DRG 470 ==
LOC: HSDI 01-31 05:22 → N06B 01-31 20:27
PROVIDERS: ADMIT Orthopaedic Surgery Sports Medicine; ATTEND Orthopaedic Surgery Sports Medicine
PROC: 0QRD0JZ Replacement of Right Patella with Synthetic Substitute, Open Approach (ICD-10-PCS; 2017-01-31)
PROC: 3E0T3CZ (ICD-10-PCS; 2017-01-31)
PROC: 0SRC0J9 Replacement of Right Knee Joint with Synthetic Substitute, Cemented, Open Approach (ICD-10-PCS; principal; 2017-01-31 08:25)
DX: M17.11 Unilateral primary osteoarthritis, right knee (principal); Z68.42 Body mass index [BMI] 45.0-49.9, adult; M25.761 Osteophyte, right knee; E66.01 Morbid (severe) obesity due to excess calories; Z98.84 Bariatric surgery status; E03.9 Hypothyroidism, unspecified; F32.9 Major depressive disorder, single episode, unspecified; Z79.01 Long term (current) use of anticoagulants
CPT/HCPCS: 73560; 80048; 85027; 86850; 86900; 86901; 93971; 94150; C1776; C9290; J0131; J0171; J0690; J0735; J1100; J1580; J1650; J1885; J2250; J2270; J2405; J2795; J3010; J3370; J7030; J7050; J7120; L1830

== ENCOUNTER 2017-08-15 05:56 | Inpatient (IN) | payer OTHER, MEDICARE ==
[~2017-08-15] VITALS: Ht 154.9 cm; Wt 99.6 kg
[~2017-08-15 05:56] MED LIST: BUPR150T3 PO; ESCI20TA PO; LEVO.075 PO; MULTTAB25 PO; TRAM50TA PO; TYLE325T PO; VITA2000 PO; VITA500T49 PO
[2017-08-15] MEDS ORDERED: INSULIN HUMAN REGULAR 1,000 UNITS/10 ML VIAL SQ PRN (06:45)
[2017-08-15] MEDS ORDERED: ROPIVACAINE PERI-ARTICULAR INJECTION. P-ARTICULR SCH ×5 (06:45)
[2017-08-15] MEDS ORDERED: ceFAZolin 2 GM PREMIX 50 ML IV SCH (06:45)
[2017-08-15] MEDS ORDERED: TRANEXAMIC PERI-ARTICULAR 3,000 MG/NS 100 ML P-ARTICULR SCH ×2 (06:45)
[2017-08-15] MEDS ORDERED: TRANEXAMIC ACID INJ 1,500 MG in SODIUM CHLORIDE 0.9% INJ 100 ML IV SCH (06:45)
[2017-08-15] MEDS ORDERED: VANCOMYCIN 1000 MG/NS 250 ML (for <70 kg) IV SCH ×2 (06:45)
[2017-08-15] MEDS ORDERED: DEXAMETHASONE SOD PHOS 20 MG/5 ML VIAL IV PRN (06:45)
[2017-08-15] MEDS ORDERED: POVIDONE IODINE 5% (ANTISEPSIS KIT) 4 APPLICATIONS EACH NARE PRN (06:45)
[2017-08-15] MEDS ORDERED: METOPROLOL TARTRATE 25 MG TAB PO PRN (06:45)
[2017-08-15] MEDS ORDERED: LACTATED RINGER'S 1000 ML IV PRN (06:45)
[2017-08-15] MEDS ORDERED: POVIDONE IODINE 7.5% SCRUB 118 ML BOTTLE TOPICAL SCH (06:45)
[2017-08-15] MEDS ORDERED: CHLORHEXIDINE GLUCONATE 4% SOLN 120 ML BTL TOPICAL SCH (06:45)
[2017-08-15] MEDS ORDERED: CHLORHEXIDINE GLUCONATE 2 % 1 PACK (2 CLOTHS) TOPICAL PRN (06:45)
[2017-08-15] MEDS ORDERED: SODIUM CHLORID 0.9% 500 ML IV PRN (06:45)
[2017-08-15] MEDS ORDERED: GENTAMICIN SULFATE 80 MG/2 ML VIAL ONE (06:58)
[2017-08-15] MEDS ORDERED: ENOX40P SQ (07:05)
[2017-08-15] MEDS ORDERED: HYDR-3288 PO (07:05)
[2017-08-15] MEDS ORDERED: ASPI81CH37 CHEW (07:06)
[2017-08-15] MEDS ORDERED: Post-op Orders (for Pharmacy) MISC XX ONE (07:15)
[2017-08-15] MEDS ORDERED: MORPHINE SULFATE 4 MG/ML INJ IV PUSH PRN (07:15)
[2017-08-15] MEDS ORDERED: BISACODYL 10 MG SUPP RECTAL PRN (07:15)
[2017-08-15] MEDS ORDERED: ZOLPIDEM TARTRATE 5 MG TAB PO PRN (07:15)
[2017-08-15] MEDS ORDERED: diphenhydrAMINE HCL 50 MG/ML VIAL IV PRN (07:15)
[2017-08-15] MEDS ORDERED: SODIUM CHLORIDE 0.9% FLUSH 5 ML FLUSH IVF PRN (07:15)
[2017-08-15] MEDS ORDERED: ONDANSETRON HCL 4 MG/2 ML VIAL IVP PRN (07:15)
[2017-08-15] MEDS ORDERED: ACETAMINOPHEN/HYDROcodone 325 MG/7.5 MG TAB PO PRN (07:15)
[2017-08-15] MEDS ORDERED: TIZA4CAP3 PO (07:20)
[2017-08-15] MEDS ORDERED: TRAZ50TA12 PO (07:20)
[2017-08-15] MEDS ORDERED: FAMOTIDINE 20 MG/2 ML VIAL ONE (07:50)
[2017-08-15] MEDS ORDERED: ACETAMINOPHEN 1000 MG/100 ML 100 ML IV ONE (07:50)
[2017-08-15] MEDS: ESCITALOPRAM OXALATE 20 MG TAB PO SCH (09:00)
[2017-08-15] MEDS: SODIUM CHLORIDE 0.9% FLUSH 5 ML FLUSH IVF SCH ×2 (09:00→21:00)
[2017-08-15] MEDS: LEVOTHYROXINE SODIUM 75 MCG TAB PO SCH (09:00)
[2017-08-15] MEDS: buPROPion HCL 150 MG SUSTAINED RELEASE TAB PO SCH (09:00)
[2017-08-15] MEDS ORDERED: BUPIVACAINE LIPOSOME PF 1.3% 20 ML VIAL ONE (10:20)
[2017-08-15] MEDS ORDERED: DO NOT ADM ANY ANTICOAGULANT DRUGS PRN (10:48)
[2017-08-15] MEDS ORDERED: *morphine SULFATE 8 MG/ML PERIprocedure ONLY ONE ×2 (11:26→13:56)
--- NOTE | 2017-08-15 11:29 | RADRPT ---
EXAM DATE/TIME: 08/15/2017 10:52 [facility] COMPARISON: No previous studies available for comparison. INDICATIONS : Post op left total knee MEDICAL HISTORY : None. SURGICAL HISTORY : None. ENCOUNTER: Initial ACUITY: 1 day PAIN SCORE: 10/10 LOCATION: Left Knee FINDINGS: AP and lateral views of the left knee demonstrate changes consistent with recent total knee arthropla sty with metallic hardware in place in the distal femur and proximal tibia. There is a radiolucent pa tellar component. Skin anushka are present anteriorly. There is soft tissue gas present, as expected. CONCLUSION: Expected changes following recent left total knee arthroplasty. Eliseo Sheldon MD on August 15, 2017 at 11:26 Board Certified Radiologist. This report was verified electronically.
[2017-08-15] MEDS: SODIUM CHLOR 0.9% 1000 ML INJ 1,000 ML IV SCH ×2 (11:30→18:27)
[2017-08-15] MEDS ORDERED: PROPOFOL 200 MG/20 ML AMP IV ONE (12:00)
[2017-08-15] MEDS ORDERED: ONDANSETRON HCL 4 MG/2 ML VIAL IV PUSH ONE (12:00)
--- NOTE | 2017-08-15 15:12 | PD.CONS ---
HPI Service [facility] Hospitalists Consult Requested By Dr. Pradhan Reason for Consult Medical management. Primary Care Physician Danielle Lacey MD Diagnoses: History of Present Illness Written by Tanesha Arevalo, acting as scribe for Dr. Salmeron on 08/15/17 at 15:11. This note was transcribed by scribe ERIKA Waters. I, Dr. Jarred Salmeron personally performed the history, physical exam, and medical decision making; and confirmed the accuracy of the information in the transcribed note. Authenticated by Dr. Jarred Salmeron on 08/15/17 at 22:16. Ms. Ireland is a pleasant 67 year old female with a history of hypothyroidism, osteoarthritis who underwent total knee arthroplasty today, 08/15. Patient was seen in the PACU where she is doing well. She reports some left knee discomfort. Denies any chest pain, shortness of breath, fever, chills. She denies any changes in bowel or bladder habits. Hospitalist service was consulted for medical management. Review of Systems Constitutional: DENIES: Fever, Chills Eyes: DENIES: Blurred vision Respiratory: COMPLAINS OF: Snoring, DENIES: Cough, Shortness of breath Cardiovascular: DENIES: Chest pain Gastrointestinal: DENIES: Constipation, Diarrhea, Nausea, Vomiting Except as stated in HPI: all other systems reviewed are Neg Past Family Social History Allergies: Coded Allergies: No Known Allergies (Unverified , 08/15/17) Past Medical History Morbid obesity status post gastric bypass 2004, hypothyroidism, arthritis mostly bilateral knees and depression, Past Surgical History Bilateral meniscus repair, carpal tunnel repair bilaterally, gastric bypass 2004 , fatty tumor removed from neck several years ago. Reported Medications Active Aspirin Low Dose (Aspirin) 81 Mg Chew 81 Mg CHEW BID 30 Days Lovenox Inj (Enoxaparin Sodium) 40 Mg/0.4 Ml Syr 40 Mg SQ DAILY Winterset (Hydrocodone-Acetaminophen) 7.5-325 mg Tab 1-2 Tab PO Q6H PRN Reported Tizanidine (Tizanidine HCl) 4 Mg Cap 4 Mg PO BID Trazodone (Trazodone HCl) 50 Mg Tab 50 Mg PO HS Tramadol (Tramadol HCl) 50 Mg Tab 100 Mg PO Q6H PRN Tylenol (Acetaminophen) 325 Mg Tab 1,050 Mg PO BID Synthroid (Levothyroxine Sodium) 75 Mcg Tab 75 Mcg PO DAILY Vitamin B12 (Cyanocobalamin) 500 Mcg Tab 3,000 Mcg PO DAILY Multi For Her 50+ (Multiple Vitamins W/ Minerals) 1 Tab Tab 2 Chew PO DAILY Vitamin D3 (Cholecalciferol) 2,000 Unit Cap 2,000 Units PO DAILY Escitalopram (Escitalopram Oxalate) 20 Mg Tab 20 Mg PO DAILY Bupropion HCl ER 24 HR (Bupropion HCl) 150 Mg Tab 150 Mg PO DAILY Active Ordered Medications Current Medications Medications (Trade) Dose Ordered Sig/Ubaldo Route Start Time Stop Time Status Last Admin Lactated Ringer's 1,000 ml @ 30 mls/hr Q24H PRN IV 08/15/17 06:45 08/18/17 06:44 08/15/17 07:02 Sodium Chloride 500 ml @ 30 mls/hr [id number] PRN IV 08/15/17 06:45 08/18/17 06:44 (Lopressor) 25 mg COMPUTER CONSOLE OPERATOR PRN PO 08/15/17 06:45 08/18/17 06:44 (Betadine 5% Antisepsis Kit) 1 applic COMPUTER CONSOLE OPERATOR PRN EACH NARE 08/15/17 06:45 08/18/17 06:44 08/15/17 07:15 (Chlorhexidine 2% Cloth) 3 pack COMPUTER CONSOLE OPERATOR PRN TOPICAL 08/15/17 06:45 08/18/17 06:44 08/15/17 06:25 (NovoLIN R INJ) See Protocol Table ... COMPUTER CONSOLE OPERATOR PRN SQ 08/15/17 06:45 08/18/17 06:44 (Decadron Inj) 10 mg COMPUTER CONSOLE OPERATOR PRN IV 08/15/17 06:45 08/15/17 07:15 (Betadine 7.5% Scrub) 1 applic ONCE TOPICAL 08/15/17 06:45 08/18/17 06:44 08/15/17 06:50 (Hibiclens 4% Top Soln) 1 applic ONCE TOPICAL 08/15/17 06:45 08/18/17 06:44 Cefazolin Sodium/ Dextrose 50 ml @ 100 mls/hr COMPUTER CONSOLE OPERATOR IV 08/15/17 06:45 08/18/17 06:44 08/15/17 07:20 Vancomycin HCl 1000 mg/Sodium Chloride 250 ml @ 250 mls/hr COMPUTER CONSOLE OPERATOR IV 08/15/17 06:45 08/18/17 06:44 08/15/17 07:27 (Wellbutrin Sr) 150 mg DAILY PO 08/15/17 09:00 (Lexapro) 20 mg DAILY PO 08/15/17 09:00 (Synthroid) 75 mcg DAILY@0600 PO 08/15/17 09:00 Sodium Chloride 1,000 ml @ 100 mls/hr Q10H IV 08/15/17 07:00 08/15/17 11:30 (NS Flush) 2 ml UNSCH PRN IVF 08/15/17 07:15 (NS Flush) 2 ml BID IVF 08/15/17 09:00 Cefazolin Sodium 1000 mg/Sodium Chloride 100 ml @ 200 mls/hr Q6H IV 08/15/17 12:00 08/16/17 00:29 08/15/17 14:00 (Lovenox Inj) 40 mg Q24H SQ 08/16/17 10:00 08/25/17 10:01 (Morphine Inj) 3 mg Q3H PRN IV PUSH 08/15/17 07:15 08/15/17 14:00 (Winterset 7.5-325 Mg) 1 tab Q4H PRN PO 08/15/17 07:15 (Winterset 7.5-325 Mg) 2 tab Q4H PRN PO 08/15/17 07:15 (Theragran M Tab) 1 tab BID PO 08/16/17 21:00 10/15/17 20:59 (Zofran Inj) 4 mg Q6H PRN IVP 08/15/17 07:15 (Colace) 100 mg BID PO 08/16/17 21:00 (Ambien) 5 mg HS PRN PO 08/15/17 07:15 (Dulcolax Supp) 10 mg DAILY PRN RECTAL 08/15/17 07:15 (Benadryl Inj) 25 mg Q6H PRN IV 08/15/17 07:15 Miscellaneous Information ALL NURSING DEPARTME... UNSCH PRN .XX 08/15/17 10:48 08/16/17 10:47 Family History Patient reports bipolar runs in her family Brother secondary to brain aneurysm Social History Patient reports she drinks 1-2 beers a week Denies tobacco use now or in the past Denies illicit drug use Physical Exam Vital Signs Vital Signs Date Time Temp Pulse Resp B/P (MAP) Pulse Ox O2 Delivery O2 Flow Rate FiO2 08/15/17 12:00 69 18 161/74 (103) 95 Room Air 2 08/15/17 11:45 62 18 154/73 (100) 99 Nasal Cannula 2 08/15/17 11:30 62 18 144/67 (92) 96 Nasal Cannula 2 08/15/17 11:15 63 18 120/57 (78) 96 Nasal Cannula 2 08/15/17 11:00 63 18 141/76 (97) 94 Nasal Cannula 2 08/15/17 10:53 98.3 67 18 139/64 (89) 95 Nasal Cannula 2 08/15/17 07:08 99.0 60 20 175/71 (105) 94 Physical Exam GENERAL: This is a well-nourished, well-developed female patient, lying in bed post operatively in no apparent distress. SKIN: No rashes. Warm and dry. Left knee in immobilizer and irais dressing/post operative dressing clean/dry/intact. HEAD: Atraumatic. Normocephalic. EYES: Pupils equal round and reactive. Extraocular motions intact. No scleral icterus. No injection or drainage. ENT: Nose without bleeding, purulent drainage or septal hematoma. Throat without erythema, tonsillar hypertrophy or exudate. Uvula midline. Airway patent. NECK: Trachea midline. No JVD or lymphadenopathy. Supple, nontender, no meningeal signs. CARDIOVASCULAR: Regular rate and rhythm without murmurs, gallops, or rubs. RESPIRATORY: Clear to auscultation. Breath sounds equal bilaterally. No wheezes , rales, or rhonchi. GASTROINTESTINAL: Abdomen soft, non-tender, nondistended. No hepato-splenomegaly , or palpable masses. No guarding. MUSCULOSKELETAL: Extremities without clubbing, cyanosis, or edema. No joint tenderness, effusion, or edema noted. No calf tenderness. Negative Homans sign bilaterally. NEUROLOGICAL: Awake and alert. Cranial nerves II through XII intact. Motor and sensory grossly within normal limits. Five out of 5 muscle strength in all muscle groups. Normal speech. Moves right lower extremity, wiggles toes, denies any paraesthesia, numbness or tingling. Laboratory 02/02/2017 Hgb 10.0, Hct 29.3, MCV 94.6, Plt 144. Na 144, K 4.1, Creatinine 0.77. Random Glucose 137. Imaging Last Impressions Knee X-Ray 08/15/17 0703 Signed Impressions: Service Date/Time: Tuesday, August 15, 2017 10:52 - CONCLUSION: Expected changes following recent left total knee arthroplasty. Eliseo Sheldon MD Assessment and Plan Problem List: (1) Osteoarthritis of left knee ICD Code: M17.12 - Unilateral primary osteoarthritis, left knee (2) Hypothyroidism ICD Code: E03.9 - Hypothyroidism, unspecified (3) Anxiety and depression ICD Code: F41.8 - Other specified anxiety disorders Assessment and Plan Ms. Ireland is a pleasant 67 year old female with a history of hypothyroidism, osteoarthritis who underwent left total knee arthroplasty on 08/15/2017. - Osteoarthritis of left knee - s/p Left knee total arthroplasty - Winterset PO, Morphine IV PRN for pain control. - Docusate for bowel regimen - Lovenox 40mg Q24hrs X 10 days starting 08/16/2017. - Anxiety and depression - Continue Lexapro 20mg Qday, Bupropion 150mg Qday. - Hypothyroidism - Continue Levothyroxine 75mcg Qday - Hypertension - post op, patient's blood pressure was slightly elevated, likely transient. - Will monitor. If needed, we will consider a calcium channel anuel. Full code. Lovenox starting 08/16/2017. Thank you for the consult. We will continue to follow patient with you. Tanesha Arevalo Aug 15, 2017 15:11 Mona Salmeron DO Aug 15, 2017 22:31
[2017-08-15 15:47] VITALS: BP 126/59; PULSE 65; RESP 17; TEMP 95.6; O2SAT 92
[2017-08-15 19:35] VITALS: BP 129/63; PULSE 69; RESP 17; TEMP 97.9; O2SAT 97
[2017-08-15 20:30] VITALS: O2SAT 93
[2017-08-15] MEDS ORDERED: traZODone HCL 50 MG TAB PO ONE (21:30)
[2017-08-16] VITALS (7 sets, daily range): BP systolic 96–134; BP diastolic 46–61; PULSE 51–78; RESP 17–19; TEMP 96.2–98.6; O2SAT 91–98
[2017-08-16] MEDS: SODIUM CHLOR 0.9% 1000 ML INJ 1,000 ML IV SCH ×3 (03:00→23:00)
[2017-08-16] MEDS: LEVOTHYROXINE SODIUM 75 MCG TAB PO SCH (04:47)
[2017-08-16] MEDS: ACETAMINOPHEN/HYDROcodone 325 MG/7.5 MG TAB PO PRN ×5 (04:49→23:03)
[2017-08-16] MEDS: buPROPion HCL 150 MG SUSTAINED RELEASE TAB PO SCH (08:22)
[2017-08-16] MEDS: ESCITALOPRAM OXALATE 20 MG TAB PO SCH (08:22)
[2017-08-16] MEDS: SODIUM CHLORIDE 0.9% FLUSH 5 ML FLUSH IVF SCH ×2 (08:23→20:30)
[2017-08-16 08:24] LABS: HEMATOCRIT 30.2 % (35.0-46.0); MEAN CELL VOLUME 99.1 FL (80.0-100.0); MEAN CORPUSCULAR HEMOGLOBIN 33.1 PG (27.0-34.0); MEAN CORPUSCULAR HGB CONC 33.4 % (32.0-36.0); PLATELET COUNT 153 TH/MM3 (150-450); RED BLOOD COUNT 3.04 MIL/MM3 (4.00-5.30); REVIEW FLAG FINAL; WHITE BLOOD COUNT 6.4 TH/MM3 (4.0-11.0)
--- NOTE | 2017-08-16 08:30 | PD.ORT.PN ---
Subjective Post Op Day #: 1 Subjective Remarks doing well. pain tolerable. Objective Vitals Vital Signs Date Time Temp Pulse Resp B/P (MAP) Pulse Ox O2 Delivery O2 Flow Rate FiO2 08/16/17 07:46 96.5 51 18 99/50 (66) 91 08/16/17 04:03 97.7 63 18 117/52 (73) 94 08/16/17 00:50 97.9 58 18 103/49 (67) 98 08/15/17 20:30 93 21 08/15/17 19:35 97.9 69 17 129/63 (85) 97 08/15/17 19:10 Room Air 08/15/17 15:47 95.6 65 17 126/59 (81) 92 08/15/17 15:20 64 18 140/88 (105) 92 Room Air 08/15/17 15:00 69 18 162/71 (101) 92 Room Air 08/15/17 14:00 78 18 155/68 (97) 90 Room Air 08/15/17 13:00 67 18 139/61 (87) 91 Room Air 08/15/17 12:00 69 18 161/74 (103) 95 Room Air 2 08/15/17 11:45 62 18 154/73 (100) 99 Nasal Cannula 2 08/15/17 11:30 62 18 144/67 (92) 96 Nasal Cannula 2 08/15/17 11:15 63 18 120/57 (78) 96 Nasal Cannula 2 08/15/17 11:00 63 18 141/76 (97) 94 Nasal Cannula 2 08/15/17 10:53 98.3 67 18 139/64 (89) 95 Nasal Cannula 2 I/O 08/15/17 08/15/17 08/15/17 08/16/17 08/16/17 08/16/17 07:00 15:00 23:00 07:00 15:00 23:00 Intake Total 1310 ml 710 ml 689 ml Output Total 350 ml 730 ml Balance 960 ml -20 ml 689 ml Intake Oral 360 ml 360 ml 360 ml IV Total 150 ml 350 ml 329 ml Other 800 ml Output Urine Total 300 ml 730 ml Estimated Blood Loss 50 ml # Voids 1 2 # Bowel Movements 0 0 Result Diagram: 08/16/17 0616 Objective Remarks in bed, nad, using cpm dressing c/d/i neg homans nvi Assessment & Plan Ortho Post Op Day #: 1 Problem List: Assessment and Plan s/p LTKA wbat daily dressing changes lovenox d/c planning home with [facility] and pt - plan for Wed rx in chart f/up dr. chapman 2 weeks Howie Brantley Aug 16, 2017 08:30
--- NOTE | 2017-08-16 08:32 | HHI.DCPOC ---
Discharge Care Plan Diagnosis: (1) Primary localized osteoarthrosis, lower leg Your Health Problems Are: Difficulty with ADL Goals to Promote Your Health * To prevent worsening of your condition and complications * To maintain your health at the optimal level Directions to Meet Your Goals Take your medications as prescribed Follow your dietary instruction Follow activity as directed Keep your appointments as scheduled Take your immunizations and boosters as scheduled If your symptoms worsen call your PCP, if no PCP go to Urgent Care Center or Emergency Room Smoking is Dangerous to Your Health. Avoid second hand smoke Call the 24-hour hour crisis hotline for domestic abuse at Howie Brantley Aug 16, 2017 08:32
--- NOTE | 2017-08-16 08:32 | HHI.FF ---
Face to Face Verification Diagnosis: (1) Primary localized osteoarthrosis, lower leg Physical Therapy Gait training, Safety evaluation, Transfer training, bed to chair Knee: Total knee, Protocol: Left, Full weight bearing Left LE Weight Bearing: WB as tolerated Nursing RN: 3 days/week x 2 weeks Nursing: Aide teaching, Dressing changes Dressing Changes: Daily dressing change I have seen patient Curtis Ireland on 08/16/17. My clinical findings support the need for the requested home health care services because: Limited ability to care for self High risk of falls I certify that my clinical findings support that this patient is homebound because: Post-op weakness Unsteady gait/balance Howie Brantley Aug 16, 2017 08:32
[2017-08-16 09:00] LABS: BICARBONATE 28.1 MEQ/L (21.0-32.0); POTASSIUM 4.2 MEQ/L (3.5-5.1)
[2017-08-16] MEDS: ENOXAPARIN SODIUM 40 MG/0.4 ML SYRINGE SQ SCH (10:44)
[2017-08-16] MEDS ORDERED: NALOXONE HCL 0.4 MG/ML AMP IV PUSH PRN (10:45)
[2017-08-16] MEDS ORDERED: LACTULOSE SYRUP 20 GM/30 ML CUP PO PRN (10:45)
[2017-08-16] MEDS ORDERED: BISACODYL 10 MG SUPP RECTAL PRN (10:45)
[2017-08-16] MEDS ORDERED: MAGNESIUM HYDROXIDE SUSP 30 ML CUP PO PRN (10:45)
[2017-08-16] MEDS ORDERED: SENNOSIDES 8.6 MG TAB PO PRN (10:45)
[2017-08-16] MEDS: MULTIVITAMINS/MINERALS THERAPEUTIC TAB PO SCH (20:28)
[2017-08-16] MEDS: DOCUSATE SODIUM 100 MG CAP PO SCH (20:28)
[2017-08-16] MEDS ORDERED: traZODone HCL 50 MG TAB PO SCH (21:00)
--- NOTE | 2017-08-16 21:57 | MP ---
cc: MICHELA CLARK M.D. DATE OF SURGERY 08/15/2017 PREOPERATIVE DIAGNOSIS Left knee osteoarthritis POSTOPERATIVE DIAGNOSIS Left knee osteoarthritis. PROCEDURE Left total knee arthroplasty SURGEON Dr. Michela Clark MANAGER PULMONARY kitchen assistant SHARATH Bates ANESTHESIA General with femoral nerve block. ESTIMATED BLOOD LOSS 100 cc. COMPLICATIONS None. IMPLANTS USED DePuy attune size 5 posterior stabilized femoral component, size 4 rotating platform tibial baseplate, size 35 mm patella, size 8 mm polyethylene tibial insert. JUSTIFICATION This patient is a 67-year-old female with a history of severe end-stage osteoarthritis involving the left knee. She has severe disabling pain with standing, walking, ambulation, weightbearing activities and even severe pain at rest. It does interfere with activities of daily living. She has failed greater than 3 months of nonoperative conservative treatment to include medication therapy, injections, ambulatory assisted aids, home exercise program, activity modification, weight loss attempts. X-rays of the left knee reveal severe end-stage osteoarthritis, [id number] joint space narrowing, subchondral sclerosis, subchondral cyst, osteophyte formation with varus deformity. The patient was counseled as to the risks, benefits and alternatives to a total knee arthroplasty. The risks were discussed which include but not limited to injury, bleeding, infection, damage to nerves, blood vessels, pain, stiffness, failure of components, blood clots, pulmonary embolism and even . The patient's pain is severe. She favored the benefits over the risks. She did wish to proceed with surgery. PROCEDURE IN DETAILS A written consent was obtained. The patient identified by name, taken to operating room and placed supine on the operating table. General anesthesia was administered as well as 2 grams of IV Ancef and 1 gram of IV vancomycin. A well-padded tourniquet was placed on the left thigh. The left lower extremity was prepped and draped using isopropyl alcohol, Hibiclens solution and Chloraprep solution. A after time-out was performed an Esmarch bandage used to exsanguinate the left lower extremity. Tourniquet inflated to 300 mmHg. A longitudinal incision was made over the anterior aspect of the left knee and medial parapatellar arthrotomy incision was performed. The patella was everted. The patellar resection guide was used to resect 7.5 mm of patella to a size 35 mm guide was placed. Three drills were placed and the 35 mm trial fit well. Attention was turned to the femur where a intramedullary guide kristie was placed and the distal femoral guide was set to remove 10 mm of distal femur, 5 degrees off the anatomic valgus axis alignment. An oscillating saw was used to perform the distal femoral cut. Attention was turned to the tibia where an extramedullary tibial guide was set to remove 5 mm of the lowest portion medial tibial plateau. The tibial guide was then placed and tibia cut was performed. A 5-mm spacer block showed full extension. Attention turned back to the femur. AP sizing block measured a size 5. The anterior surgery external rotation guide was used to pin a size [address]. The anterior and posterior chamfer cuts were performed with a size 5 PCL box that was pinned in place. PCL box __ with an oscillating saw. The medial lateral meniscus remnants were removed as well bone and soft tissue debris from posterior portion of the knee. A size 4 tibia base was pinned in place. The tibia was drilled and punched. Trial components were evaluated and final components cemented in place. With an 8-mm polyethylene tibial insert the leg achieved full extension to 0 degrees and flexion to approximately 135. No evidence of tibial lift-off. Varus-valgus balance were appropriate and symmetric. There was some lateral tracking of the patella and lateral release was performed which allowed for central patellar tracking. Tourniquet was deflated. Bovie electrocautery was used for hemostasis. Surgical wound was thoroughly irrigated with sterile saline pulse lavage antibiotic-impregnated solution. The arthrotomy incision was closed with a #1 Vicryl suture. The subcutaneous layer with 2-0 Vicryl suture. Skin was closed with Dermabond. Sterile dressing applied. The patient tolerated the procedure well and no intraoperative complications noted. Esvin Brantley physician medical office assistant instructor, certified was present during the entire procedure to include patient positioning and the procedure itself. The medical necessity of physician medical office assistant instructor was indicated in this case due to the complexity of the procedure. He assisted with appropriate manipulation of the leg and also retraction of muscle, tendon, bone, neurovascular structures. He assisted with preparation of bone cuts and also implantation of the prosthetic replacement. MD MAXIMILIANO Slater/ALEX /10:30 AM /2:33 PM
--- NOTE | 2017-08-16 22:25 | HHI.PR ---
Subjective Remarks Patient was seen this morning. Follow up for left knee osteoarthritis s/p TKA. Patient is doing well. No fever , chills. She sitting in her chair. Pain is well controlled. No BM yet. Objective Vitals Vital Signs Date Time Temp Pulse Resp B/P (MAP) Pulse Ox O2 Delivery O2 Flow Rate FiO2 08/16/17 19:04 Room Air 08/16/17 15:36 96.7 55 18 96/46 (63) 93 08/16/17 10:45 96.2 66 19 99/55 (70) 94 08/16/17 08:55 21 08/16/17 07:46 96.5 51 18 99/50 (66) 91 08/16/17 04:03 97.7 63 18 117/52 (73) 94 08/16/17 00:50 97.9 58 18 103/49 (67) 98 I/O 08/15/17 08/15/17 08/15/17 08/16/17 08/16/17 08/16/17 07:00 15:00 23:00 07:00 15:00 23:00 Intake Total 1310 ml 710 ml 689 ml 650 ml 960 ml Output Total 350 ml 730 ml Balance 960 ml -20 ml 689 ml 650 ml 960 ml Intake Oral 360 ml 360 ml 360 ml 650 ml 960 ml IV Total 150 ml 350 ml 329 ml Other 800 ml Output Urine Total 300 ml 730 ml Estimated Blood Loss 50 ml # Voids 1 2 2 3 # Bowel Movements 0 0 0 0 Result Diagram: 08/16/17 0616 08/16/17 0616 Imaging Last Impressions Knee X-Ray 08/15/17 0703 Signed Impressions: Service Date/Time: Tuesday, August 15, 2017 10:52 - CONCLUSION: Expected changes following recent left total knee arthroplasty. Eliseo Sheldon MD Objective Remarks GENERAL: AOX3, NAD. SKIN: Warm and dry. HEAD: Normocephalic. EYES: No scleral icterus. No injection or drainage. NECK: Supple, trachea midline. No JVD or lymphadenopathy. CARDIOVASCULAR: Regular rate and rhythm without murmurs, gallops, or rubs. RESPIRATORY: Breath sounds equal bilaterally. No accessory muscle use. GASTROINTESTINAL: Abdomen soft, non-tender, nondistended. MUSCULOSKELETAL: No cyanosis, or edema. s/p Left TKA. BACK: Nontender without obvious deformity. No CVA tenderness. Procedures Left TKA 08/15/2017 A/P Problem List: (1) Osteoarthritis of left knee ICD Code: M17.12 - Unilateral primary osteoarthritis, left knee (2) Hypothyroidism ICD Code: E03.9 - Hypothyroidism, unspecified (3) Anxiety and depression ICD Code: F41.8 - Other specified anxiety disorders Assessment and Plan Ms. Ireland is a pleasant 67 year old female with a history of hypothyroidism, osteoarthritis who underwent left total knee arthroplasty on 08/15/2017. - Osteoarthritis of left knee - s/p Left knee total arthroplasty - [place] PO, Morphine IV PRN for pain control. - Will add PRN bowel regimen. - Lovenox 40mg Q24hrs X 10 days starting 08/16/2017. - Anxiety and depression - Continue Lexapro 20mg Qday, Bupropion 150mg Qday. - Hypothyroidism - Continue Levothyroxine 75mcg Qday - Hypertension - post op, patient's blood pressure was slightly elevated, likely transient. - Currently normotensive. Later in the day, BP was in the upper 90s systolic. - IF remains low, consider fluid bolus 500cc to 1000cc. Full code. Lovenox Mona Salmeron DO Aug 16, 2017 22:25
[2017-08-17] MEDS: LEVOTHYROXINE SODIUM 75 MCG TAB PO SCH (05:39)
[2017-08-17] MEDS: ACETAMINOPHEN/HYDROcodone 325 MG/7.5 MG TAB PO PRN ×2 (05:40→12:54)
[2017-08-17 08:00] VITALS: BP 141/64; PULSE 71; RESP 20; TEMP 99.1; O2SAT 91
--- NOTE | 2017-08-17 08:02 | PD.ORT.PN ---
Subjective Post Op Day #: 2 Subjective Remarks doing well. pain tolerable. ready to go home. Objective Vitals Vital Signs Date Time Temp Pulse Resp B/P (MAP) Pulse Ox O2 Delivery O2 Flow Rate FiO2 08/16/17 23:30 98.4 71 17 112/60 (77) 95 08/16/17 20:15 98.6 78 17 134/61 (85) 96 08/16/17 19:04 Room Air 08/16/17 15:36 96.7 55 18 96/46 (63) 93 08/16/17 10:45 96.2 66 19 99/55 (70) 94 08/16/17 08:55 21 I/O 08/16/17 08/16/17 08/16/17 08/17/17 08/17/17 08/17/17 07:00 15:00 23:00 07:00 15:00 23:00 Intake Total 689 ml 650 ml 960 ml 480 ml Balance 689 ml 650 ml 960 ml 480 ml Intake Oral 360 ml 650 ml 960 ml 480 ml IV Total 329 ml # Voids 2 2 3 2 # Bowel Movements 0 0 0 1 Result Diagram: 08/16/17 0616 08/16/17 0616 Objective Remarks walking in hallway with walker, nad dressing c/d/i neg homans nvi Assessment & Plan Ortho Post Op Day #: 2 Problem List: Assessment and Plan s/p LTKA wbat daily dressing changes lovenox d/c planning home with [facility] and pt - cleared for d/c today rx in chart f/up dr. chapman 2 weeks Howie Brantley Aug 17, 2017 08:02
[2017-08-17] MEDS: MULTIVITAMINS/MINERALS THERAPEUTIC TAB PO SCH (08:19)
[2017-08-17] MEDS: ESCITALOPRAM OXALATE 20 MG TAB PO SCH (08:19)
[2017-08-17] MEDS: DOCUSATE SODIUM 100 MG CAP PO SCH (08:19)
[2017-08-17] MEDS: buPROPion HCL 150 MG SUSTAINED RELEASE TAB PO SCH (08:19)
[2017-08-17] MEDS: SODIUM CHLORIDE 0.9% FLUSH 5 ML FLUSH IVF SCH (08:20)
[2017-08-17 08:23] LABS: HEMATOCRIT 28.6 % (35.0-46.0); MEAN CELL VOLUME 99.2 FL (80.0-100.0); MEAN CORPUSCULAR HEMOGLOBIN 33.5 PG (27.0-34.0); MEAN CORPUSCULAR HGB CONC 33.7 % (32.0-36.0); PLATELET COUNT 147 TH/MM3 (150-450); RED BLOOD COUNT 2.88 MIL/MM3 (4.00-5.30); RED CELL DISTRIBUTION WIDTH 12.8 % (11.6-17.2); REVIEW FLAG FINAL; WHITE BLOOD COUNT 5.9 TH/MM3 (4.0-11.0)
[2017-08-17] MEDS: ENOXAPARIN SODIUM 40 MG/0.4 ML SYRINGE SQ SCH (08:24)
[2017-08-17] MEDS: SODIUM CHLOR 0.9% 1000 ML INJ 1,000 ML IV SCH (08:24)
[2017-08-17 08:46] LABS: BICARBONATE 30.3 MEQ/L (21.0-32.0); POTASSIUM 4.4 MEQ/L (3.5-5.1)
[2017-08-17 09:34] VITALS: O2SAT 97
[2017-08-17 11:55] VITALS: BP 96/46; PULSE 66; RESP 20; TEMP 97.9; O2SAT 96
--- NOTE | 2017-08-17 12:38 | HHI.PR ---
Subjective Remarks Follow up for left knee osteoarthritis s/p TKA. No acute concerns. Patient is going home with home health today. Objective Vitals Vital Signs Date Time Temp Pulse Resp B/P (MAP) Pulse Ox O2 Delivery O2 Flow Rate FiO2 08/17/17 11:55 97.9 66 20 96/46 (63) 96 08/17/17 09:34 97 08/17/17 08:00 99.1 71 20 141/64 (89) 91 08/16/17 23:30 98.4 71 17 112/60 (77) 95 08/16/17 20:15 98.6 78 17 134/61 (85) 96 08/16/17 19:04 Room Air 08/16/17 15:36 96.7 55 18 96/46 (63) 93 I/O 08/16/17 08/16/17 08/16/17 08/17/17 08/17/17 08/17/17 07:00 15:00 23:00 07:00 15:00 23:00 Intake Total 689 ml 650 ml 960 ml 480 ml Balance 689 ml 650 ml 960 ml 480 ml Intake Oral 360 ml 650 ml 960 ml 480 ml IV Total 329 ml # Voids 2 2 3 2 # Bowel Movements 0 0 0 1 Result Diagram: 08/17/17 0708/17/17 07 Imaging Last Impressions Knee X-Ray 08/15/17 07 Signed Impressions: Service Date/Time: Tuesday, August 15, 2017 10:52 - CONCLUSION: Expected changes following recent left total knee arthroplasty. Eliseo Sheldon MD Objective Remarks GENERAL: AOX3, NAD. SKIN: Warm and dry. HEAD: Normocephalic. EYES: No scleral icterus. No injection or drainage. NECK: Supple, trachea midline. No JVD or lymphadenopathy. CARDIOVASCULAR: Regular rate and rhythm without murmurs, gallops, or rubs. RESPIRATORY: Breath sounds equal bilaterally. No accessory muscle use. GASTROINTESTINAL: Abdomen soft, non-tender, nondistended. MUSCULOSKELETAL: No cyanosis, or edema. s/p Left TKA. BACK: Nontender without obvious deformity. No CVA tenderness. Procedures Left TKA 08/15/2017 A/P Problem List: (1) Osteoarthritis of left knee ICD Code: M17.12 - Unilateral primary osteoarthritis, left knee (2) Hypothyroidism ICD Code: E03.9 - Hypothyroidism, unspecified (3) Anxiety and depression ICD Code: F41.8 - Other specified anxiety disorders Assessment and Plan Ms. Ireland is a pleasant 67 year old female with a history of hypothyroidism, osteoarthritis who underwent left total knee arthroplasty on 08/15/2017. - Osteoarthritis of left knee - s/p Left knee total arthroplasty - [place] PO, Morphine IV PRN for pain control. - PRN bowel regimen. - Lovenox 40mg Q24hrs X 10 days starting 08/16/2017. - Anxiety and depression - Continue Lexapro 20mg Qday, Bupropion 150mg Qday. - Hypothyroidism - Continue Levothyroxine 75mcg Qday - Hypertension - post op, patient's blood pressure was slightly elevated, likely transient. - Currently normotensive. Full code. Mona Scott DO Aug 17, 2017 12:38 pm
--- NOTE | 2017-08-19 12:05 | MD ---
cc: MICHELA CLARK M.D. ADMISSION DATE: 08/15/2017 DISCHARGE DATE: 08/17/2017 ADMITTING DIAGNOSIS Severe degenerative osteoarthritis, left knee. DISCHARGE DIAGNOSIS Severe degenerative osteoarthritis, left knee. HISTORY OF PRESENT ILLNESS Ms. Ireland is a 67-year-old female who has been a patient of Dr. Michela Clark'elaine at the [facility] for several years' duration. She has recently been treated for progressive left knee pain. She states the pain is a severe aching sensation which is aggravated by weightbearing activity. She notes the pain is inhibiting her activities of daily living. She states she has no alleviating factors at this point in time although in the past she has tried medications, bracing, physical therapy, home exercise program and corticosteroid injections without relief of symptoms. She does have a history of a well-functioning right total knee arthroplasty. The patient has x-ray evidence of severe degenerative osteoarthritis of the left knee. While in the office the patient was counseled on her diagnosis and treatment options. The risks, benefits and indications of all were discussed. The patient did elect to proceed with surgical intervention to include a left total knee arthroplasties. Date of surgery 08/15/2017, left total knee arthroplasty. POST-OP After surgery the patient was admitted to [facility] where she received appropriate medical management, pain control, DVT prophylaxis, as well as physical therapy. DISCHARGE Once being discharged from the hospital the patient is cleared to go home where she will receive home health care and home physical therapy. She is in stable condition. She is to receive daily dressing changes and has been instructed on wound care management. The patient has been provided prescriptions for pain control as well as DVT prophylaxis medication. She has also been provided a follow-up appointment in approximately 2 weeks from her date of surgery. The patient asked appropriate questions which have been answered. The patient is cleared for discharge. Dictated by: Michela Brantley PA-C MD MAXIMILIANO Slater/GERRY /8:03 AM /12:01 PM
== END 2017-08-17 13:24 | disposition home health service (06) | DRG 470 ==
LOC: HSDI 05:56 → N06B 15:40
PROVIDERS: ADMIT Orthopaedic Surgery Sports Medicine; ATTEND Orthopaedic Surgery Sports Medicine
PROC: 0SRD0J9 Replacement of Left Knee Joint with Synthetic Substitute, Cemented, Open Approach (ICD-10-PCS; principal; 2017-08-15 08:12)
DX: M17.12 Unilateral primary osteoarthritis, left knee (principal); I10 Essential (primary) hypertension; F32.9 Major depressive disorder, single episode, unspecified; E03.9 Hypothyroidism, unspecified; F41.9 Anxiety disorder, unspecified; Z98.84 Bariatric surgery status
CPT/HCPCS: 73560; 80048; 85027; 86850; 86900; 86901; 94150; C1776; C9290; J0131; J0690; J0735; J1100; J1580; J1650; J1885; J2270; J2405; J2795; J3010; J3370; J7030; J7050; J7120; L1830

== ENCOUNTER → 2017-10-12 | Day surgery (SDC) | payer OTHER ==
[~2017-10-12] MED LIST changes: +ASPI81CH6 CHEW; +ENOX40P SQ; +HYDR-3288 PO; +LACTATED RINGER'S 1000 ML INJ 1,000 ML ONE; +MIDAZOLAM HCL 2 MG/2 ML VIAL ONE; +MORPHINE SULFATE 4 MG/ML INJ ONE; +PROPOFOL 200 MG/20 ML AMP IV ONE; +TIZA4CAP3 PO; +TRAZ50TA12 PO; -TYLE325T PO; +VITA500T35 PO; -VITA500T49 PO
--- NOTE | 2017-10-13 07:59 | MP ---
cc: MICHELA CLARK M.D. DATE OF SURGERY 10/12/2017 PREOPERATIVE DIAGNOSIS Left knee stiffness and arthrofibrosis status post total knee arthroplasty. POSTOPERATIVE DIAGNOSES Left knee stiffness and arthrofibrosis status post total knee arthroplasty. PROCEDURE Left knee manipulation under anesthesia. SURGEON Dr. Michela Clark ANESTHESIA General TIVA ESTIMATED BLOOD LOSS 0 cc COMPLICATIONS None JUSTIFICATION This patient is a 67-year-old female who has undergone previous left total knee arthroplasty approximately two months ago. She developed stiffness of her knee which has been refractory to physical therapy and a home exercise program. The patient was counseled as to the risks, benefits and alternatives to the above-named proposed surgical procedure. She did wish to proceed with surgery. PROCEDURE IN DETAIL A written consent was obtained. The patient identified by name, taken to the operating room, place supine on operating room table. TIVA general anesthesia was administered by Dr. Madrigal from anesthesia. After appropriate anesthesia was administered, a manipulation of the left knee was performed to include full extension to 0 degrees and flexion to approximately 140. The patient tolerated the well without complication. MD MAXIMILIANO Slater/NITA /4:24 PM /7:59 AM
== END | disposition home or self-care (01) ==
LOC: ESDC 14:38
PROVIDERS: ATTEND Orthopaedic Surgery Sports Medicine
DX: M24.662 Ankylosis, left knee (principal); Z96.652 Presence of left artificial knee joint
CPT/HCPCS: 01380; 27570; J2250; J2270; J3010; J7120